=== PATIENT | male | born 1945 | race Caucasian/White ===

== ENCOUNTER 2021-12-07 09:09 | Outpatient (REF) | payer MEDICARE, SELFPAY ==
--- NOTE | 2021-12-07 | PFT_ITS ---
Forced vital capacity 99%, FEV1 52%, FEV1/FVC ratio is 40, FEF 25-75 only 24%, and MVV 53%. Post bronchodilator therapy, only minimal improvement noted in FVC and FEF 25-75. Total lung capacity 120%. Residual volume 137%. Diffusion capacity is 51, moderately reduced. IMPRESSION: Severe obstructive airway disorder. Minimal improvement after bronchodilator therapy is noted. There is evidence of hyperinflation and air trapping. Clinical correlation recommended. Peterson Barbour MD MSB/MODL / [id number]
== END 2021-12-07 09:10 | disposition home or self-care (01) ==
LOC: HO.RESP 09:09
PROVIDERS: PCP Internal Medicine; Visit Provider Surgery
DX: Z01.818 Encounter for other preprocedural examination (principal)
CPT/HCPCS: 94060; 94727; 94729